=== PATIENT | male | born 1965 | race Two or more races ===

== ENCOUNTER 2019-05-10 11:34 | Emergency (ER) | payer OTHER ==
[~2019-05-10] VITALS: Ht 167.6 cm; Wt 147.9 kg
--- NOTE | 2019-05-10 11:40 | NUR ---
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 TO ER BED 1, HOOKED TO MONITOR, CHANGED TO HOSPITAL GOWN, PROVIDED W WARM BLANKET, PATIENT AOx4 , BREATHING EVEN AND UNLABORED, AWAITING MD RANKIN.
--- NOTE | 2019-05-10 11:48 | NUR ---
DR WATERMAN AT BEDSIDE
[2019-05-10] MEDS ORDERED: IV NS 0.9% 1,000 ML BAG IV ONE (12:00)
[2019-05-10] MEDS ORDERED: MORPHINE SULFATE INJ 2 MG/ML DISP.SYRIN IV ONE (12:00)
[2019-05-10] MEDS ORDERED: ONDANSETRON HCL/PF 4 MG/2 ML VIAL IVP ONE (12:00)
[2019-05-10] MEDS ORDERED: ONDANSETRON HCL/PF 4 MG/2 ML VIAL ONE (12:06)
[2019-05-10] MEDS ORDERED: MORPHINE SULFATE INJ 4 MG/ML DISP.SYRIN ONE (12:07)
[2019-05-10 12:13] LABS: BASOPHILS % (AUTO) 0.4 % (0.0-2.0); EOSINOPHILS % (AUTO) 0.6 % (0.0-6.0); HEMATOCRIT 47 % (39-51); HEMOGLOBIN 15.1 g/dL (13.5-17.5); LYMPHOCYTES # (AUTO) 2.1 /CMM (0.8-4.8); LYMPHOCYTES % (AUTO) 20.9 % (20.0-44.0); MEAN CORPUSCULAR HGB CONC 32 g/dl (31.0-36.0); MEAN CORPUSCULAR VOLUME 91 fL (80-96); MONOCYTES % (AUTO) 10.2 % (2.0-12.0); NEUTROPHILS # (AUTO) 6.9 /CMM (1.8-8.9); NEUTROPHILS % (AUTO) 67.9 % (43.0-81.0); PLATELET COUNT (AUTO) 266 /CMM (150-450); RED BLOOD CELL COUNT(AUTO) 5.13 MIL/uL (4.5-6.0); WHITE BLOOD COUNT (AUTO) 10.2 K/uL (4.3-11.0)
--- NOTE | 2019-05-10 12:14 | NUR ---
WHEELED OUT VIA [facility] FOR CT SCAN.
[2019-05-10 12:21] LABS: CREATININE 0.9 mg/dL (0.6-1.3); POTASSIUM 3.8 mmol/L (3.5-5.1)
[2019-05-10 12:32] LABS: ALBUMIN 3.3 g/dL (3.4-5.0); BILIRUBIN,DIRECT 1.1 mg/dL (0.0-0.2); BILIRUBIN,TOTAL 1.6 mg/dL (0.2-1.0); TOTAL PROTEIN, SERUM 6.9 g/dL (6.4-8.2)
--- NOTE | 2019-05-10 12:50 | NUR ---
CALLED [facility] [phone] SPOKE WITH DAT. GUADARRAMA TO CALL US SHORTLY.
[2019-05-10] MEDS ORDERED: PIPERACILLIN /TAZOBACTAM 3.375 G in IV D5W 50 ML IV ONE (13:00)
[2019-05-10] MEDS ORDERED: PIPERACILLIN /TAZOBACTAM 3.375 G VIAL IV ONE (13:07)
--- NOTE | 2019-05-10 13:26 | NUR ---
TRANSFER INFO PT ACCEPTED AT [facility] ACCEPTING MD: GURINDER NUMBER FOR REPORT: [phone] [facility] ETA: [id number]
--- NOTE | 2019-05-10 13:37 | NUR ---
REPORT GIVEN TO MAXIMILIANO GUILLEN OF [facility] DEPT
--- NOTE | 2019-05-10 14:12 | NUR ---
Patient picked up by [facility] in stable condition. Report given to EMT. Patient will be brought to [facility]. Patient signed consent to transfer.
[2019-05-10 14:19] VITALS: BP 105/53
== END 2019-05-10 14:23 | disposition short-term general hospital (02) ==
LOC: ER 11:36
DX: K85.80 Other acute pancreatitis without necrosis or infection (principal); K83.1 Obstruction of bile duct; E66.01 Morbid (severe) obesity due to excess calories; I10 Essential (primary) hypertension; Z68.43 Body mass index [BMI] 50.0-59.9, adult
CPT/HCPCS: 36415; 71045; 74176; 80048; 80076; 83690; 85025; 85730; 93005 ×2; 96365; 96375; 99285; J2270; J2405; J2543; J7030; J7060

== ENCOUNTER 2022-03-09 09:54 | Emergency (ER) | payer OTHER ==
[~2022-03-09] VITALS: Ht 177.8 cm; Wt 126.1 kg
--- NOTE | 2022-03-09 09:58 | NUR ---
DR RODRIGUEZ AT BEDSIDE FOR EVAL
--- NOTE | 2022-03-09 10:01 | NUR ---
TECH AT BEDSIDE FOR EKG
--- NOTE | 2022-03-09 10:15 | NUR ---
IV LINE ESTABLISHED ON RAC #20, BLOOD DRAWN AND SENT TO LAB
--- NOTE | 2022-03-09 10:19 | NUR ---
CORPORATE TRAVEL EXPERT AT BEDSIDE FOR XRAY
[2022-03-09 10:28] LABS: BASOPHILS % (AUTO) 0.6 % (0.0-2.0); EOSINOPHILS % (AUTO) 0.8 % (0.0-6.0); HEMATOCRIT 42 % (39-51); LYMPHOCYTES # (AUTO) 1.3 K/uL (0.8-4.8); LYMPHOCYTES % (AUTO) 19.3 % (20.0-44.0); MEAN CORPUSCULAR HGB CONC 33 g/dl (31.0-36.0); MEAN CORPUSCULAR VOLUME 88 fL (80-96); MONOCYTES # (AUTO) 0.7 K/uL (0.1-1.30); MONOCYTES % (AUTO) 11.1 % (2.0-12.0); NEUTROPHILS # (AUTO) 4.6 K/uL (1.8-8.9); NEUTROPHILS % (AUTO) 68.2 % (43.0-81.0); PLATELET COUNT (AUTO) 262 K/uL (150-450); RED BLOOD CELL COUNT(AUTO) 4.78 MIL/uL (4.5-6.0); WHITE BLOOD COUNT (AUTO) 6.7 K/uL (4.3-11.0)
[2022-03-09 10:42] LABS: ALANINE AMINOTRANSFERASE 19 U/L (12-78); ALBUMIN 3.5 g/dL (3.4-5.0); ALKALINE PHOSPHATASE 62 U/L (46-116); ASPARTATE AMINOTRANSFERASE 15 U/L (15-37); BILIRUBIN,DIRECT 0.1 mg/dL (0.0-0.2); BILIRUBIN,TOTAL 0.4 mg/dL (0.2-1.0); CALCIUM, SERUM 8.9 mg/dL (8.5-10.1); CARBON DIOXIDE 29 mmol/L (21-32); CHLORIDE 103 mmol/L (98-107); CREATININE 0.8 mg/dL (0.6-1.3); GLUCOSE 99 mg/dL (74-106); POTASSIUM 3.4 mmol/L (3.5-5.1); SODIUM SERUM 138 mmol/L (136-145); TOTAL PROTEIN, SERUM 7.2 g/dL (6.4-8.2); UREA NITROGEN, BLOOD 19 mg/dL (7-18)
--- NOTE | 2022-03-09 11:57 | NUR ---
CALLED [facility] [phone] DR CORONA WILL CALL BACK.
--- NOTE | 2022-03-09 12:15 | NUR ---
DR. CORONA FROM [facility] SPEAKING WITH DR. RODRIGUEZ.
--- NOTE | 2022-03-09 13:19 | NUR ---
PT ABLE TO AMBULATE TO BATHROOM W/ STEADY GAIT
[2022-03-09 13:55] VITALS: BP 105/66
--- NOTE | 2022-03-09 13:56 | NUR ---
[facility], DR ISMAEL MART [phone]
--- NOTE | 2022-03-09 14:53 | NUR ---
emt at bedside to pickup pt
--- NOTE | 2022-03-09 15:00 | NUR ---
PT D/C'D TO [facility] VIA [facility], ACCOMPANIED BY 2 PUBLIC HEALTH EPIDEMIOLOGIST. DC DOCS GIVEN.
== END 2022-03-09 15:39 | disposition short-term general hospital (02) ==
LOC: ER 09:56
DX: R07.9 Chest pain, unspecified (principal); I10 Essential (primary) hypertension; Z20.822 Contact with and (suspected) exposure to COVID-19; J45.909 Unspecified asthma, uncomplicated; Z86.16 Personal history of COVID-19
CPT/HCPCS: 99285; 71045; 87426; 93005; 85025; 80048; 80076; 36415; 84484 ×3; C9803